=== PATIENT | female | born 1995 | race Caucasian/White ===

== ENCOUNTER 2019-05-08 23:02 | Emergency (ER) | payer MEDICAID ==
[~2019-05-08] VITALS: Ht 167.6 cm; Wt 83.9 kg
[2019-05-08 23:15] VITALS: BP 130/76
[2019-05-09] MEDS ORDERED: ONDA4TAB12 PO (00:18)
[2019-05-09] MEDS ORDERED: PROM25TA10 PO (00:18)
--- NOTE | 2019-05-09 00:18 | PHYS DOC ---
Past Medical History Past Medical History: No Pertinent History Alcohol Use: None Drug Use: None Adult General Chief Complaint Chief Complaint: TEST [facility] HPI Patient is a 24 year old female who presents with concern for . Patient states she began been nauseous a week ago, and having breast tenderness. She also is having intermittent pelvic pain that started yesterday. The patient states her last missed her period April 13, 2019. The patient states that she has had a tubal ligation but has had 2 miscarriages since that time. Review of Systems Review of Systems Constitutional: Denies fever or chills [] Eyes: Denies change in visual acuity, redness, or eye pain [] HENT: Denies nasal congestion or sore throat [] Respiratory: Denies cough or shortness of breath [] Cardiovascular: No additional information not addressed in HPI [] GI: Reports nausea, Denies abdominal pain, vomiting, bloody stools or diarrhea [] : Denies dysuria or hematuria [] Musculoskeletal: Denies back pain or joint pain [] Integument: Denies rash or skin lesions [] Neurologic: Denies headache, focal weakness or sensory changes [] Endocrine: Denies polyuria or polydipsia [] Complete systems were reviewed and found to be within normal limits, except as documented in this note. Allergies Allergies Allergies Coded Allergies Type Severity Reaction Last Updated Verified morphine Allergy Mild headache 05/08/19 Yes Physical Exam Physical Exam Constitutional: Well developed, well nourished, no acute distress, non-toxic appearance. [] HENT: Normocephalic, atraumatic, bilateral external ears normal, oropharynx moist, no oral exudates, nose normal. [] Eyes: PERRLA, EOMI, conjunctiva normal, no discharge. [] Neck: Normal range of motion, no tenderness, supple, no stridor. [] Skin: Warm, dry, no erythema, no rash. [] Back: No tenderness, no CVA tenderness. [] Extremities: No tenderness, no cyanosis, no clubbing, ROM intact, no edema. [] Neurologic: Alert and oriented X 3, normal motor function, normal sensory function, no focal deficits noted. [] Psychologic: Affect normal, judgement normal, mood normal. [] Current Patient Data Vital Signs Vital Signs Date Time Temp Pulse Resp B/P (MAP) Pulse Ox O2 Delivery O2 Flow Rate FiO2 05/08/19 23:15 98.2 78 16 130/76 (94) 98 Room Air 98.2 Lab Values Laboratory Tests Test 05/08/19 23:28 POC Urine HCG, Qualitative Hcg negative (Negative) EKG EKG [] Radiology/Procedures Radiology/Procedures [] Course & Med Decision Making Course & Med Decision Making Pertinent Labs and Imaging studies reviewed. (See chart for details) test is negative. Discussed with patient that it is too early to have a + preg test. Offered to do UA to check for UTI and workup for pelvic pain and she declined. I will write script for Phenergan and Zofran. Dragon Disclaimer Dragon Disclaimer This electronic medical record was generated, in whole or in part, using a voice recognition dictation system. Departure Departure Impression: Primary Impression: Nausea Disposition: 01 HOME, SELF-CARE Condition: STABLE Referrals: NO PCP (PCP) Patient Instructions: Nausea, Adult Additional Instructions: Thank you for visiting [facility]. We appreciate you trusting us with your care. If any additional problems come up don't hesitate to return to visit us. Please follow up with your primary care provider so they can plan additional care if needed and know about the problem that you had. If symptoms worsen come back to the Emergency Department. Any concerning symptoms that start such as chest pain, shortness of air, weakness or numbness on one side of the body, running high fevers or any other concerning symptoms return to the ER. Scripts Promethazine Hcl (PROMETHAZINE HCL) 25 Mg Tablet 1 TAB PO PRN Q6HRS PRN for NAUSEA, #20 TAB Prov: KENNEDY PIERCE APRN 05/09/19 Ondansetron (ONDANSETRON ODT) 4 Mg Tab.rapdis 1 TAB PO PRN Q6-8HRS PRN for NAUSEA, #16 TAB Prov: KENNEDY PIERCE APRN 05/09/19 KENNEDY PIERCE APRN May 09, 2019 00:18
== END 2019-05-09 00:32 | disposition home or self-care (01) ==
LOC: ER 23:02
DX: R11.0 Nausea (principal); R10.2 Pelvic and perineal pain; Z88.5 Allergy status to narcotic agent
CPT/HCPCS: 81025; 99283

== ENCOUNTER 2020-05-25 22:37 | Emergency (ER) | payer MEDICAID ==
[~2020-05-25] VITALS: Ht 167.6 cm; Wt 89.6 kg
[~2020-05-25 22:37] MED LIST: ONDA4TAB12 PO; PROM25TA10 PO
[2020-05-25 22:50] VITALS: BP 119/76
[2020-05-25] MEDS ORDERED: HYDR-2761 PO (23:34)
--- NOTE | 2020-05-25 23:34 | ED.ADGEN ---
Past Medical History Past Medical History: No Pertinent History Past Surgical History: Tubal ligation Smoking Status: Never Smoker Alcohol Use: None Drug Use: None General Adult EDM: Chief Complaint: LOWER EXT PAIN HPI: HPI: Patient is a 25 year old female accompanied by her , who presents emergency room with complaints of pain in her left heel. 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 Patient states that her heel and the back of her ankle has been very tender since feeling the popping sensation and she reports she has not been able to bear weight on the affected extremity since the injury. She currently rates pain a 2 out of 10 on the pain scale, states the pain is only relieved by rest. She denies any numbness, tingling, or decreased sensation of the affected foot. Review of Systems: Review of Systems: Complete ROS is negative unless otherwise noted in HPI. Allergies: Allergies: Allergies Coded Allergies Type Severity Reaction Last Updated Verified morphine Allergy Mild headache 05/08/19 Yes Physical Exam: PE: See Above Constitutional: Well developed, well nourished, no acute distress, non-toxic appearance. [] HENT: Normocephalic, atraumatic, bilateral external ears normal, nose normal. [] Eyes: PERRLA, EOMI, conjunctiva normal, no discharge. [] Neck: Normal range of motion, no stridor. [] Cardiovascular:Heart rate regular rhythm Lungs & Thorax: Respirations even and unlabored, no retractions, no respiratory distress Skin: Warm, dry, no erythema, no rash. [] Extremities: Left foot: Rodrigez test normal, tenderness to palpation of the posterior and plantar surface of the heel, no obvious deformity, no crepitus, no edema, normal sensation, 2+ pedal pulse 2+ posterior tibial pulse, no cyanosis, no clubbing, ROM intact, no edema. [] Neurologic: Alert and oriented X 3, no focal deficits noted. [] Psychologic: Affect normal, judgement normal, mood normal. [] Current Patient Data: Vital Signs: Vital Signs Date Time Temp Pulse Resp B/P (MAP) Pulse Ox O2 Delivery O2 Flow Rate FiO2 05/25/20 22:50 98.1 78 18 119/76 (90) 97 98.1 EKG: EKG: [] Heart Score: Risk Factors: Risk Factors: DM, Current or recent (<one month) smoker, HTN, HLP, family history of CAD, obesity. Risk Scores: Score 0 - 3: 2.5% MACE over next 6 weeks - Discharge Home Score 4 - 6: 20.3% MACE over next 6 weeks - Admit for Clinical Observation Score 7 - 10: 72.7% MACE over next 6 weeks - Early Invasive Strategies Radiology/Procedures: Radiology/Procedures: PROCEDURE: FOOT LEFT 3V FOOT LEFT 3V DATE: 05/25/2020 11:02 PM INDICATION: Reason: l heel pain after feeling pop in the shower / Spl. Instructions: / History: COMPARISON: None. FINDINGS: Bones: There is no evidence of acute fracture or dislocation. Posterior calcaneal enthesophyte. Small sclerotic focus in the calcaneus, probably a bone island. Joints: The joint spaces are normal. Miscellaneous: None. IMPRESSION: No evidence of acute fracture.[] Course & Med Decision Making: Course & Med Decision Making I have personally interviewed and examined patient. All charts, labs and imaging studies were reviewed. I agreed with the PA/MOBILE MARKETING SPECIALIST's findings, exam and plan of carePertinent Labs and Imaging studies reviewed. (See chart for details) [] 25-year-old female presents with a left foot injury. Patient has been placed in a plantar flexed short leg posterior on the left to immobilize a possible Achilles injury. Patient is alert and oriented on my exam. Discussed with patient need for orthopedic follow-up. Dragon Disclaimer: Dragon Disclaimer: This electronic medical record was generated, in whole or in part, using a voice recognition dictation system. Departure Departure Impression: Primary Impression: Pain of left heel Disposition: 01 DC HOME SELF CARE/HOMELESS Condition: STABLE Referrals: NO PCP (PCP) KIERAN CAMILO MD Patient Instructions: Foot Sprain-Brief, Heel Spur Additional Instructions: Fill prescription(s) and use as directed. Recommend application of ice, elevation, and rest of affected extremity. Wear the cam walker that was placed until follow up appointment with Dr. Camilo, call in the morning for an appointment. Return to the ER if your symptoms worsen. Scripts Hydrocodone Bit/Acetaminophen (HYDROCODONE-APAP 5-325 ) 1 Tab Tablet 0.5-1 TAB PO PRN Q6HRS PRN for SEVERE PAIN 7-10, #4 TAB 0 Refills Prov: MARLEY LUTZ APRN 05/25/20 Splinting Splinting : Location: Left foot Hand-Made Type: orthoglass (short leg posterior) Splint: posterior walking (Cam walker) Pre-Proc Neuro Vasc Exam: normal Post-Proc Neuro Vasc Exam: normal, unchanged from pre-exam MARLEY LUTZ APRN May 25, 2020 23:34 NOLA SLAUGHTER MD May 26, 2020 00:28
--- NOTE | 2020-05-25 23:49 | RAD ---
FOOT LEFT 3V DATE: 05/25/2020 11:02 PM INDICATION: Reason: l heel pain after feeling pop in the shower / Spl. Instructions: / History: COMPARISON: None. FINDINGS: Bones: There is no evidence of acute fracture or dislocation. Posterior calcaneal enthesophyte. Small sclerotic focus in the calcaneus, probably a bone island. Joints: The joint spaces are normal. Miscellaneous: None. IMPRESSION: No evidence of acute fracture. Electronically signed by: Александр Gupta MD (05/25/2020 11:44 PM) DAVID
== END 2020-05-26 00:25 | disposition home or self-care (01) ==
LOC: ER 22:37
DX: M79.672 Pain in left foot (principal); Z88.5 Allergy status to narcotic agent
CPT/HCPCS: 29505; 29515; 73630; 99283